=== PATIENT | female | born 1955 | race Caucasian/White ===

== ENCOUNTER → 2016-11-24 | Outpatient (CLI) | payer BC ==
--- NOTE | 2016-11-24 17:13 | CR ---
EXAMINATION: Thoracic spine HISTORY: Pain COMPARISON: None TECHNIQUE: AP and lateral views FINDINGS: The thoracic spinal alignment appears grossly normal. The vertebral body heights and disc spaces appear well-maintained. There is no fracture or dislocation. Bone mineralization is normal. IMPRESSION: Grossly unremarkable thoracic spine.
== END | disposition home or self-care (01) ==
LOC: MW.CHFP 13:29
PROVIDERS: ATTEND Physician Assistant
DX: M54.6 Pain in thoracic spine (principal); R11.0 Nausea; R10.816 Epigastric abdominal tenderness
CPT/HCPCS: 36415; 72070; 72070-26; 80048; 81001; 85025; 85652

== ENCOUNTER → 2016-11-25 | Outpatient (CLI) | payer BC | LOC: MW.CHFP 09:41 | PROVIDERS: ATTEND Physician Assistant | DX: R11.0 Nausea (principal); R10.816 Epigastric abdominal tenderness | CPT/HCPCS: 82272; 87338 ==

== ENCOUNTER 2018-03-29 06:50 | Day surgery (SDC) | payer BC ==
[~2018-03-29 06:50] MED LIST: Lactated Ringers 1,000 ML IV SCH; Sodium Chloride 0.9% 10 ML Syringe FLUSH PRN; Sodium Chloride 0.9% 2.5 ML Syringe FLUSH PRN
[2018-03-29] MEDS ORDERED: fentaNYL 100 MCG/2 ML SDV ONE (06:54)
[2018-03-29] MEDS ORDERED: Lidocaine 2% 5 ML SDV ONE (06:54)
[2018-03-29] MEDS ORDERED: Propofol 200 MG/20 ML SDV ONE (06:54)
--- NOTE | 2018-03-29 07:34 | PCM.PREANE ---
Preanesthetic Assessment - Anesthesia/Transfusion/Family Hx Anesthesia History: Prior Anesthesia Reaction Other Type of Anesthesia Reaction Comment: severe anxiety from Versed Family History of Anesthesia Reaction: No Transfusion History: No Prior Transfusion(s) - Review of Systems General: No Symptoms Pulmonary: No Symptoms Cardiovascular: No Symptoms Gastrointestinal: No Symptoms Neurological: No Symptoms Other: Reports: None - Physical Assessment NPO Status Date: 03/28/18 Height: 1.63 m Weight: 85.729 kg ASA Class: 2 Mental Status: Alert & Oriented x3 Airway Class: Mallampati = 1 Dentition: Reports: Normal Dentition ROM/Head Extension: Full Lungs: Clear to Auscultation, Normal Respiratory Effort Cardiovascular: Regular Rate, Regular Rhythm - Allergies Allergies/Adverse Reactions: Allergies Allergy/AdvReac Type Severity Reaction Status Date / Time codeine Allergy Hives Verified 03/23/18 16:07 midazolam HCl [From Versed] Allergy Anxiety Verified 03/23/18 16:07 oxaprozin [From Daypro] Allergy Hives Verified 03/23/18 16:07 Penicillins Allergy Hives Verified 03/23/18 16:07 Sulfa (Sulfonamide Allergy Hives Verified 03/23/18 16:07 Antibiotics) - Anesthesia Plan Pre-Op Medication Ordered: None - Acknowledgements Anesthesia Type Planned: MAC Pt an Appropriate Candidate for the Planned Anesthesia: Yes Alternatives and Risks of Anesthesia Discussed w Pt/Guardian: Yes Pt/Guardian Understands and Agrees with Anesthesia Plan: Yes PreAnesthesia Questionnaire HEENT History: Reports: Cataract, Other (See Below) Other HEENT History: wears glasses Cardiovascular History: Reports: Hypertension Respiratory History: Reports: None Gastrointestinal History: Reports: Diverticulosis, GERD 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 Musculoskeletal History: Reports: Back Pain, Chronic, Fracture, Fibromyalgia, Neck Pain, Chronic, Osteoarthritis Other Musculoskeletal History: hx of fx hand Neurological History: Reports: Other (See Below) Other Neuro History: hx of motion sickness Psychiatric History: Reports: Anxiety, Depression Endocrine/Metabolic History: Reports: Obesity/BMI 30+ Hematologic History: Reports: None Immunologic History: Reports: None Oncologic (Cancer) History: Reports: None Dermatologic History: Reports: None - Past Surgical History Head Surgeries/Procedures: Reports: None HEENT Surgical History: Reports: Tonsillectomy GI Surgical History: Reports: Cholecystectomy, Colonoscopy Female Surgical History: Reports: Breast Reduction, Hysterectomy, Other (See Below) Other Female Surgeries/Procedures: hx TOVT, hx of bladder stimulator implant , continues to have bladder urgency and pain Musculoskeletal Surgical History: Reports: Other (See Below) Other Musculoskeletal Surgeries/Procedures:: 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 - SUBSTANCE USE Smoking Status *Q: Never Smoker Recreational Drug Use History: No - HOME MEDS Home Medications: Home Meds Estradiol Acetate [Femring] 1 insert VAG ASDIRECTED 06/18/14 [History] clonazePAM [Klonopin] 1 mg PO DAILY 06/18/14 [History] traMADol HCl [Ultram] 100 mg PO BID PRN 06/18/14 [History] Desvenlafaxine Succinate [Pristiq] 50 mg PO BEDTIME 03/23/18 [History] Fluorometholone [Fluorometholone 0.1% Ophth Susp] 1 drop EYEBOTH DAILY 03/23/18 [History] Triamterene/Hydrochlorothiazid [Triamterene-HCTZ 37.5-25 MG] 1 cap PO QAM [History] - CURRENT (IN HOUSE) MEDS Current Meds: Current Medications Lactated Ringer's (Ringers, Lactated) 1,000 mls @ 125 mls/hr IV ASDIRECTED JUAN Sodium Chloride (Saline Flush) 10 ml FLUSH ASDIRECTED PRN PRN Reason: Keep Vein Open Sodium Chloride (Saline Flush) 2.5 ml FLUSH ASDIRECTED PRN PRN Reason: Keep Vein Open Sodium Chloride (Saline Flush) 10 ml FLUSH ASDIRECTED PRN PRN Reason: Keep Vein Open Sodium Chloride (Saline Flush) 2.5 ml FLUSH ASDIRECTED PRN PRN Reason: Keep Vein Open Discontinued Medications Fentanyl (Sublimaze) Confirm Administered Dose 100 mcg .ROUTE .STK-MED ONE Stop: 03/29/18 06:55 Lidocaine (Xylocaine-Mpf 2%) Confirm Administered Dose 5 ml .ROUTE .STK-MED ONE Stop: 03/29/18 06:55 Propofol (Diprivan 20 Ml) Confirm Administered Dose 400 mg .ROUTE .STK-MED ONE Stop: 03/29/18 06:55
[2018-03-29] MEDS ORDERED: Glycopyrrolate 0.2 MG/ML SDV ONE ×2 (08:52→08:54)
--- NOTE | 2018-03-29 09:13 | PCM.OPNOTE ---
- General Post-Op/Procedure Note Date of Surgery/Procedure: 03/29/18 Operative Procedure(s): Colonoscopy Findings: Diverticulosis and mildly enlarged hemorrhoids Pre Op Diagnosis: Diverticulosis, change in bowel habits Post-Op Diagnosis: Diverticulosis, hemorrhoids Anesthesia Technique: SANTANA Primary Surgeon: Yvonne Lunsford Condition: Good
--- NOTE | 2018-03-29 09:22 | PCM.POSTAN ---
POST ANESTHESIA ASSESSMENT - MENTAL STATUS Mental Status: Alert (To phase II), Oriented - RESPIRATORY Respiratory Status: Respiratory Rate WNL, Airway Patent, O2 Saturation Stable - CARDIOVASCULAR CV Status: Pulse Rate WNL, Blood Pressure Stable - GASTROINTESTINAL GI Status: No Symptoms - POST OP HYDRATION Hydration Status: Adequate & Stable
[2018-03-29 09:32] VITALS: BP 124/79
--- NOTE | 2018-03-29 09:49 | PCM48HPAN ---
Post Anesthesia Note - EVALUATION WITHIN 48HRS OF ANESTHETIC Vital Signs in Normal Range: Yes Patient Participated in Evaluation: Yes Respiratory Function Stable: Yes Airway Patent: Yes Cardiovascular Function Stable: Yes Hydration Status Stable: Yes Pain Control Satisfactory: Yes Nausea and Vomiting Control Satisfactory: Yes Mental Status Recovered: Yes Resp Rate: 13
--- NOTE | 2018-03-29 18:45 | OR ---
SURGEON: ANURAG QUINN MD DATE OF PROCEDURE: 03/29/2018 PREOPERATIVE DIAGNOSES: 1. Change in bowel habits. 2. History of diverticulosis. POSTOPERATIVE DIAGNOSES: 1. Diverticulosis. 2. Grade 1 hemorrhoids. PROCEDURE PERFORMED: Diagnostic colonoscopy. ANESTHESIA: MAC. INSTRUMENT USED: Olympus colonoscope. EXTENT OF EXAM: To the cecum. PREPARATION: Good. LIMITATIONS: None. INDICATION FOR EXAMINATION: The patient is a 63-year-old female, who developed some left lower quadrant pain this summer associated with some change in bowel habits. She was given antibiotics for presumed diverticulitis, but no further workup was performed. The decision was made to perform a diagnostic colonoscopy now that it has been several months since this episode. The patient and I discussed the procedure, expected perioperative course, and risks including bleeding, infection, or damage to surrounding structures including perforation. The patient verbalized understanding and wishes to proceed. PROCEDURE IN DETAIL: The patient was brought to the endoscopy suite and placed in a left lateral decubitus position. A time-out was completed verifying the patient's name, age, date of , allergies, and procedure to be performed. Monitored anesthesia care was induced and continuous oxygen was provided via nasal cannula throughout the procedure. After adequate sedation was achieved, a digital rectal exam was performed. This exam showed some mildly enlarged hemorrhoids but was otherwise normal. There was no evidence of any anal fissure or other pathology. A well- lubricated colonoscope was inserted in the rectum and advanced under direct visualization to the level of the cecum. The cecum was identified by both visual and anatomic landmarks. A photograph was taken of the cecal cap. I was unable to retroflex the scope within the cecum due to looping of the scope more proximally. The scope was then fully withdrawn while examining the color, texture, anatomy, and integrity of the mucosa from the cecum to the anal canal. The patient was found to have scattered diverticula throughout the sigmoid colon. The scope was brought into the rectum and retroflexed to allow visualization of the anal canal opening. This just confirmed mildly enlarged hemorrhoids but was otherwise normal. A photograph was taken. The scope was then straightened out and fully withdrawn. The cecum to anus time was 7 minutes. The patient tolerated the procedure well and was taken to PACU in stable condition. ENDOSCOPIC DIAGNOSES: 1. Diverticulosis. 2. Grade 1 hemorrhoids. RECOMMENDATIONS: Follow up in clinic in 2 weeks. IRINEO / STEFAN /[id number]
== END 2018-03-29 09:55 | disposition home or self-care (01) ==
LOC: MW.SDS 06:50
PROVIDERS: ATTEND Surgery
DX: R19.4 Change in bowel habit (principal); K57.30 Diverticulosis of large intestine without perforation or abscess without bleeding; K64.0 First degree hemorrhoids; M15.9 Polyosteoarthritis, unspecified; M79.7 Fibromyalgia; I10 Essential (primary) hypertension; G57.01 Lesion of sciatic nerve, right lower limb; F41.9 Anxiety disorder, unspecified; F32.9 Major depressive disorder, single episode, unspecified; E66.9 Obesity, unspecified; Z68.32 Body mass index [BMI] 32.0-32.9, adult; Z88.0 Allergy status to penicillin; Z88.2 Allergy status to sulfonamides; Z88.5 Allergy status to narcotic agent; Z79.899 Other long term (current) drug therapy
CPT/HCPCS: 45378; J2704; J3010; J3490; J7120

== ENCOUNTER 2019-03-18 14:29 | Emergency (ER) | payer MEDICARE, OTHER ==
--- NOTE | 2019-03-18 15:00 | EDM.PDOC ---
ED HPI GENERAL MEDICAL PROBLEM - General Chief Complaint: Abdominal Pain Stated Complaint: ABD DISCOMFORT Time Seen by Provider: 03/18/19 14:45 - History of Present Illness INITIAL COMMENTS - FREE TEXT/NARRATIVE: HISTORY AND PHYSICAL: History of present illness: Patient 64-year-old female who presents for medical screening exam patient scheduled for a outpatient CT tomorrow for further evaluation of possible rectal abscess per general surgery who is following the patient closely on arrival here patient has no change in her pain pattern is afebrile with stable vital signs patient queried myself regarding discharge home and follow-up as scheduled tomorrow for definitive testing and general surgery evaluation. I discussed case with general surgery who agrees contingent upon unremarkable examination afebrile nature of patient's presentation. Review of systems: As per history of present illness and below otherwise all systems reviewed and negative. Past medical history: As per history of present illness and as reviewed below otherwise noncontributory. Surgical history: As per history of present illness and as reviewed below otherwise noncontributory. Social history: No reported history of drug or alcohol abuse. Family history: As per history of present illness and as reviewed below otherwise noncontributory. Physical exam: HEENT: Atraumatic, normocephalic, pupils reactive, negative for conjunctival pallor or scleral icterus, mucous membranes moist, throat clear, neck supple, nontender, trachea midline. Lungs: Clear to auscultation, breath sounds equal bilaterally, chest nontender. Heart: S1S2, regular, negative for clicks, rubs, or JVD. Abdomen: Soft, nondistended, no localized tenderness no rebound no guarding. Negative for masses or hepatosplenomegaly. Negative for costovertebral tenderness. Pelvis: Stable nontender. Genitourinary: Deferred. Rectal: Deferred. Extremities: Atraumatic, negative for cords or calf pain. Neurovascular unremarkable. Neuro: Awake, alert, oriented. Cranial nerves II through XII unremarkable. Cerebellum unremarkable. Motor and sensory unremarkable throughout. Exam nonfocal. Diagnostics: Deferred Therapeutics: Deferred Impression: # 1 medical screening exam Definitive disposition and diagnosis as appropriate pending reevaluation and review of above. lower abdomen Pain Score (Numeric/FACES): 6 - Related Data Allergies Allergy/AdvReac Type Severity Reaction Status Date / Time codeine Allergy Nausea and Verified 03/18/19 14:50 Vomiting midazolam HCl [From Versed] Allergy Anxiety Verified 03/18/19 14:50 oxaprozin [From Daypro] Allergy Hives Verified 03/18/19 14:50 Penicillins Allergy Hives Verified 03/18/19 14:50 Sulfa (Sulfonamide Allergy Hives Verified 03/18/19 14:50 Antibiotics) Home Meds: Home Meds clonazePAM [Klonopin] 0.5 - 1 mg PO DAILY 06/18/14 [History] traMADol HCl [Ultram] 100 mg PO BID PRN 06/18/14 [History] Triamterene/Hydrochlorothiazid [Triamterene-HCTZ 37.5-25 MG] 1 cap PO QAM [History] Escitalopram [Lexapro] 20 mg PO DAILY 03/18/19 [History] Past Medical History HEENT History: Reports: Cataract, Other (See Below) Other HEENT History: wears glasses Cardiovascular History: Reports: Hypertension, Other (See Below) (long QT interval on EKG) Respiratory History: Reports: None Gastrointestinal History: Reports: Diverticulosis, GERD, Hemorrhoids Genitourinary History: Reports: Other (See Below) Other Genitourinary History: interstitial cystitis 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 Musculoskeletal History: Reports: Back Pain, Chronic, Fracture, Fibromyalgia, Neck Pain, Chronic, Osteoarthritis Other Musculoskeletal History: hx of fx hand Neurological History: Reports: Other (See Below) Other Neuro History: hx of motion sickness Psychiatric History: Reports: Anxiety, Depression (major depression) Endocrine/Metabolic History: Reports: Obesity/BMI 30+ Other Endocrine/Metabolic History: "prediabetic" A1C 5.2 Hematologic History: Reports: None Immunologic History: Reports: None Oncologic (Cancer) History: Reports: None Dermatologic History: Reports: None - Past Surgical History Head Surgeries/Procedures: Reports: None HEENT Surgical History: Reports: Cataract Surgery, Tonsillectomy Other HEENT Surgeries/Procedures: cataract surgery 2-3 weeks ago GI Surgical History: Reports: Cholecystectomy, Colonoscopy Female Surgical History: Reports: Breast Reduction, Hysterectomy, Other (See Below) Other Female Surgeries/Procedures: hx TOVT, hx of bladder stimulator implant, Musculoskeletal Surgical History: Reports: Other (See Below) Other Musculoskeletal Surgeries/Procedures:: 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 ED EXAM, GENERAL - Physical Exam Exam: See Below (See dictation) Course - Vital Signs Last Recorded V/S: Last Vital Signs Temp 36.2 C 03/18/19 14:46 Pulse 112 H 03/18/19 14:46 Resp 18 03/18/19 14:46 BP 144/89 H 03/18/19 14:46 Pulse Ox 95 03/18/19 14:46 Departure - Departure Time of Disposition: 14:55 Disposition: Home, Self-Care 01 Condition: Good Clinical Impression: Encounter for medical screening examination - Discharge Information Referrals: PCP,Albaro [Primary Care Provider] - Additional Instructions: The following information is given to patients seen in the emergency department who are being discharged to home. This information is to outline your options for follow-up care. We provide all patients seen in our emergency department with a follow-up referral. The need for follow-up, as well as the timing and circumstances, are variable depending upon the specifics of your emergency department visit. If you don't have a primary care physician on staff, we will provide you with a referral. We always advise you to contact your personal physician following an emergency department visit to inform them of the circumstance of the visit and for follow-up with them and/or the need for any referrals to a consulting specialist. The emergency department will also refer you to a specialist when appropriate. This referral assures that you have the opportunity for followup care with a specialist. All of these measure are taken in an effort to provide you with optimal care, which includes your followup. Under all circumstances we always encourage you to contact your private physician who remains a resource for coordinating your care. When calling for followup care, please make the office aware that this follow-up is from your recent emergency room visit. If for any reason you are refused follow-up, please contact the [facility] emergency department at and asked to speak to the emergency department charge nurse. Keep scheduled appointment tomorrow for CT and surgical follow-up return as needed as discussed
[2019-03-18 15:49] VITALS: BP 117/73
== END 2019-03-18 15:46 | disposition home or self-care (01) ==
LOC: MW.ED 14:29
DX: Z13.9 Encounter for screening, unspecified (principal); I10 Essential (primary) hypertension; F41.9 Anxiety disorder, unspecified; F32.9 Major depressive disorder, single episode, unspecified; Z88.5 Allergy status to narcotic agent; Z88.2 Allergy status to sulfonamides; Z88.0 Allergy status to penicillin; Z88.8 Allergy status to other drugs, medicaments and biological substances; Z88.6 Allergy status to analgesic agent; Z79.899 Other long term (current) drug therapy
CPT/HCPCS: 99282; 99283

== ENCOUNTER 2019-04-25 08:14 | Day surgery (SDC) | payer MEDICARE, OTHER ==
[~2019-04-25 08:14] MED LIST changes: +Sodium Chloride 0.9% 10 ML SDV IV PRN
--- NOTE | 2019-04-25 09:31 | PCM.PREANE ---
Preanesthetic Assessment - Anesthesia/Transfusion/Family Hx Anesthesia History: Prior Anesthesia Reaction Other Type of Anesthesia Reaction Comment: possible awareness because of severe anxiety and depression post-op Family History of Anesthesia Reaction: No Transfusion History: No Prior Transfusion(s) Intubation History: Unknown - Review of Systems General: No Symptoms Pulmonary: No Symptoms Cardiovascular: No Symptoms Gastrointestinal: No Symptoms Neurological: No Symptoms Other: Reports: None - Physical Assessment NPO Status Date: 04/25/19 NPO Status Time: 06:30 Vital Signs: Last Vital Signs Temp 97.2 F 04/25/19 08:33 Pulse 86 04/25/19 08:33 Resp 18 04/25/19 08:33 BP 120/67 04/25/19 08:33 Pulse Ox 95 04/25/19 08:33 Height: 5 ft 4 in Weight: 83.915 kg ASA Class: 2 Mental Status: Alert & Oriented x3 Airway Class: Mallampati = 2 Dentition: Reports: Normal Dentition ROM/Head Extension: Full Lungs: Clear to Auscultation, Normal Respiratory Effort Cardiovascular: Regular Rate, Regular Rhythm - Allergies Allergies/Adverse Reactions: Allergies Allergy/AdvReac Type Severity Reaction Status Date / Time codeine Allergy Nausea and Verified 04/23/19 13:52 Vomiting midazolam HCl [From Versed] Allergy Anxiety Verified 04/23/19 13:52 oxaprozin [From Daypro] Allergy Hives Verified 04/23/19 13:52 Penicillins Allergy Hives Verified 04/23/19 13:52 Sulfa (Sulfonamide Allergy Hives Verified 04/23/19 13:52 Antibiotics) - Anesthesia Plan Pre-Op Medication Ordered: None - Acknowledgements Anesthesia Type Planned: General Anesthesia Pt an Appropriate Candidate for the Planned Anesthesia: Yes Alternatives and Risks of Anesthesia Discussed w Pt/Guardian: Yes Pt/Guardian Understands and Agrees with Anesthesia Plan: Yes Additional Comments: anes prob list anxiety /depression - on klonazepam fibromyalgia gerd htn implanted bladder srilulator - caution site of grounding pad qt prolongation - QTc 455 this am, within normal for women, will choose medications carefully PLAN: ga/lma- tiva with propofol, dex instead of zofran for prophylaxis PreAnesthesia Questionnaire HEENT History: Reports: Cataract, Other (See Below) Other HEENT History: wears glasses Cardiovascular History: Reports: Hypertension, Other (See Below) Respiratory History: Reports: None Gastrointestinal History: Reports: Diverticulosis, GERD, Hemorrhoids Genitourinary History: Reports: Other (See Below) Other Genitourinary History: interstitial cystitis 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 Musculoskeletal History: Reports: Back Pain, Chronic, Fracture, Fibromyalgia, Neck Pain, Chronic, Osteoarthritis Other Musculoskeletal History: hx of fx hand Neurological History: Reports: Other (See Below) Other Neuro History: hx of motion sickness Psychiatric History: Reports: Anxiety, Depression Endocrine/Metabolic History: Reports: Obesity/BMI 30+ Other Endocrine/Metabolic History: "prediabetic" A1C 5.2 Hematologic History: Reports: None Immunologic History: Reports: None Oncologic (Cancer) History: Reports: None Dermatologic History: Reports: None - Infectious Disease History Infectious Disease History: Reports: Chicken Pox, Measles - Past Surgical History Head Surgeries/Procedures: Reports: None HEENT Surgical History: Reports: Cataract Surgery, Tonsillectomy Other HEENT Surgeries/Procedures: cataract surgery 2-3 weeks ago GI Surgical History: Reports: Cholecystectomy, Colonoscopy Female Surgical History: Reports: Breast Reduction, Hysterectomy, Other (See Below) Other Female Surgeries/Procedures: hx TOVT, hx of bladder stimulator implant, Musculoskeletal Surgical History: Reports: Other (See Below) Other Musculoskeletal Surgeries/Procedures:: 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 - SUBSTANCE USE Smoking Status *Q: Former Smoker Tobacco Use Within Last Twelve Months: No Recreational Drug Use History: No - HOME MEDS Home Medications: Home Meds clonazePAM [Klonopin] 1 mg PO DAILY 06/18/14 [History] traMADol HCl [Ultram] 100 mg PO BID PRN 06/18/14 [History] Triamterene/Hydrochlorothiazid [Triamterene-HCTZ 37.5-25 MG] 1 cap PO QAM [History] Escitalopram [Lexapro] 20 mg PO DAILY 03/18/19 [History] Pantoprazole Sodium [Protonix] 20 mg PO QAM 04/23/19 [History] - CURRENT (IN HOUSE) MEDS Current Meds: Current Medications Lactated Ringer's (Ringers, Lactated) 1,000 mls @ 125 mls/hr IV ASDIRECTED JUAN Last Admin: 04/25/19 08:50 Dose: 125 mls/hr Sodium Chloride (Saline Flush) 10 ml FLUSH ASDIRECTED PRN PRN Reason: Keep Vein Open Sodium Chloride (Saline Flush) 2.5 ml FLUSH ASDIRECTED PRN PRN Reason: Keep Vein Open Sodium Chloride (Saline Flush) 10 ml FLUSH ASDIRECTED PRN PRN Reason: Keep Vein Open Sodium Chloride (Saline Flush) 2.5 ml FLUSH ASDIRECTED PRN PRN Reason: Keep Vein Open Sodium Chloride (Normal Saline) 10 ml IV ASDIRECTED PRN PRN Reason: IV Use
[2019-04-25] MEDS ORDERED: Midazolam 1 MG/ML 2 ML SDV ONE (10:19)
[2019-04-25] MEDS ORDERED: fentaNYL 100 MCG/2 ML SDV ONE (10:19)
[2019-04-25] MEDS ORDERED: Propofol 200 MG/20 ML SDV ONE (10:19)
[2019-04-25] MEDS ORDERED: Dexamethasone 4 MG/ML 5 ML MDV ONE (10:24)
[2019-04-25] MEDS ORDERED: Rocuronium 100 MG/10 ML Syringe ONE (10:37)
[2019-04-25] MEDS ORDERED: fentaNYL 100 MCG/2 ML SDV IVPUSH PRN (11:02)
--- NOTE | 2019-04-25 11:30 | PCM.OPNOTE ---
- General Post-Op/Procedure Note Date of Surgery/Procedure: 04/25/19 Operative Procedure(s): Diagnostic EGD and sigmoidoscopy, exam under anesthesia Findings: 1) GERD 2) Diverticulosis 3) Unable to get scope past 25cm due to a tight narrow corner in the sigmoid colon 4) Grade 3 hemorrhoids Pre Op Diagnosis: GERD, perianal pain, diverticulitis Post-Op Diagnosis: same, Grade III hemorrhoids Anesthesia Technique: General ET Tube Primary Surgeon: Yvonne Lunsford Condition: Good
--- NOTE | 2019-04-25 11:57 | PCM.POSTAN ---
POST ANESTHESIA ASSESSMENT - MENTAL STATUS Mental Status: Alert, Oriented - VITAL SIGNS Vital Signs: Last Vital Signs Temp 97.2 F 04/25/19 11:25 Pulse 80 04/25/19 11:45 Resp 16 04/25/19 11:45 BP 102/50 L 04/25/19 11:45 Pulse Ox 92 L 04/25/19 11:45 - RESPIRATORY Respiratory Status: Respiratory Rate WNL, Airway Patent, O2 Saturation Stable, Supplemental Oxygen - CARDIOVASCULAR CV Status: Pulse Rate WNL, Blood Pressure Stable - GASTROINTESTINAL GI Status: No Symptoms - POST OP HYDRATION Hydration Status: Adequate & Stable
--- NOTE | 2019-04-25 13:00 | PCM48HPAN ---
Post Anesthesia Note - EVALUATION WITHIN 48HRS OF ANESTHETIC Vital Signs in Normal Range: Yes Patient Participated in Evaluation: Yes Respiratory Function Stable: Yes Airway Patent: Yes Cardiovascular Function Stable: Yes Hydration Status Stable: Yes Pain Control Satisfactory: Yes Nausea and Vomiting Control Satisfactory: Yes Mental Status Recovered: Yes Vital Signs: Last Vital Signs Temp 96.6 F 04/25/19 11:58 Pulse 72 04/25/19 12:28 Resp 16 04/25/19 12:28 BP 101/59 L 04/25/19 12:28 Pulse Ox 96 04/25/19 12:28
[2019-04-25 13:17] VITALS: BP 95/57; PULSE 76
--- NOTE | 2019-04-26 12:18 | OR ---
SURGEON: YVONNE LUNSFORD MD DATE OF PROCEDURE: 04/25/2019 PREOPERATIVE DIAGNOSES: 1. Gastroesophageal reflux disease. 2. Diverticulosis. POSTOPERATIVE DIAGNOSES: 1. Gastroesophageal reflux disease. 2. Diverticulosis. 3. Hyperplastic gastric polyp. 4. Grade 3 hemorrhoidal disease. PROCEDURE PERFORMED: Diagnostic EGD with biopsy and sigmoidoscopy - incomplete. PRIMARY SURGEON: Yvonne Lunsford MD. ANESTHESIA: General endotracheal anesthesia. INSTRUMENT USED: Olympus endoscope/Olympus colonoscope. EXTENT OF EXAM: To the second portion duodenum, 25 cm from the anal canal opening. PREPARATION: Good. LIMITATIONS: Narrowed tight corner in the distal sigmoid colon preventing me from completing the sigmoidoscopy. INDICATIONS: The patient is a 64-year-old female with a past medical history significant for diverticulosis and perianal abscess, who came to my clinic with initial complaint of a possible perianal abscess. She had lower perianal pain. On clinical exam, she was noted to have purulence with ADDIE. As a part of her workup, a CT of the abdomen and pelvis was performed. This showed acute diverticulitis within the very distal sigmoid colon. She was treated with 2 weeks of antibiotics. She then followed up with me in clinic afterwards. Most of her symptoms resolved except for some residual rectal pain. She has a longstanding history of GERD and has never had an EGD. We discussed the need for diagnostic EGD as well as a sigmoidoscopy given that she had a previous colonoscopy the year before. Given her concerns for a possible perianal fistula or abscess, I agreed as well to perform an exam under anesthesia during the colonoscopy. I explained all the procedures, expected perioperative course, and risks including bleeding, infection, or damage to surrounding structures including perforation. The patient verbalized understanding and wishes to proceed. PROCEDURE IN DETAIL: The patient was brought to the endoscopy suite and placed on the OR cart in supine position. A time-out was completed verifying the patient's name, age, date of , allergies, and procedure to be performed. General endotracheal anesthesia was induced. A bite block was placed in the patient's mouth. A well - lubricated endoscope was placed in the patient's mouth and advanced under direct visualization to the second portion of duodenum. This appeared normal and a photograph was taken. The scope was then fully withdrawn while examining the color, texture, anatomy, and integrity of mucosa of the upper GI tract. The duodenal mucosa was free of pathology. The scope was brought into the stomach and a photograph taken of the pylorus and GE junction. Both appeared normal. The patient was noted to have a few scattered hyperplastic polyps within the body of the stomach. One of these was biopsied and sent to Pathology, labeled as gastric polyp. Biopsies were then taken of the gastric antrum, body, and fundus, and sent for histologic review and H. pylori testing. The scope was brought into the distal esophagus and a photograph was taken of the Z-line which appeared normal. A biopsy was taken of the distal esophageal mucosa and sent to pathology to look for signs of esophagitis consistent with reflux. The scope was removed and this portion of procedure terminated. I performed a digital rectal exam. The patient was noted to have grade 3 hemorrhoidal disease. A well-lubricated colonoscope was then inserted in the rectum and I attempted to navigate this under direct visualization through the sigmoid. Unfortunately at 25 cm, the patient had a narrowed area located at a tight corner. The mucosa itself appeared normal, but despite manipulating the patient's abdomen and placing her in different positions, I could not get past this tight area. This area correlated with the area of inflammation on her previous CT scan. Further attempts were then aborted. The colonic mucosa all appeared normal. The scope was brought into the rectum and retroflexed to allow visualization of the anal canal opening. This all appeared normal. The scope was removed. A bivalve proctoscope was then brought into the field. I closely inspected the anal canal and saw no evidence of a fistula, fissure, or draining abscess. The anoderm appeared normal as well. Again, the only finding was grade 3 hemorrhoids. The procedure was then terminated. The patient tolerated the procedure well and was taken to PACU in stable condition. ENDOSCOPIC DIAGNOSES: 1. Gastroesophageal reflux disease. 2. Hyperplastic gastric polyp. 3. Diverticulosis. 4. Grade 3 hemorrhoids. RECOMMENDATIONS: Follow up in clinic in 2 weeks. We will likely schedule the patient for an outpatient barium enema. IRINEO AVILES /[id number]
== END 2019-04-25 13:04 | disposition home or self-care (01) ==
LOC: MW.SDS 08:14
PROVIDERS: ATTEND Surgery
DX: K21.9 Gastro-esophageal reflux disease without esophagitis (principal); K64.2 Third degree hemorrhoids; K57.30 Diverticulosis of large intestine without perforation or abscess without bleeding; K31.7 Polyp of stomach and duodenum; K61.0 Anal abscess; K57.32 Diverticulitis of large intestine without perforation or abscess without bleeding
CPT/HCPCS: 43239; 45330; 88305; 88312; 93005; J0330; J1100; J2001; J2250; J2704; J3010; J7120; 00731